=== PATIENT | female | born 1935 | race Caucasian/White ===

== ENCOUNTER 2017-03-25 18:12 | Inpatient (IN) | payer OTHER ==
[~2017-03-25] VITALS: Ht 162.6 cm; Wt 76.2 kg
[~2017-03-25 18:12] MED LIST: ASPI-515 PO; ASPI325T80 PO; ATOR10TA PO; BENA20TA2 PO; BISA10SU65 PR; CITA40TA12 PO; DOCU-131 PO; HYDR1TAB16 PO; LEVO88TA2 PO; MAGN400O7 PO; OXYC20TA42 PO; OXYC5TAB3 PO; PREG25CA PO; TEMA30CA6 PO
[2017-03-25] MEDS ORDERED: ASPIRIN 81 MG TABLET CHEW PO ONE (19:00)
[2017-03-25 19:24] LABS: BASOPHILS # (AUTO) 0.03 x10^3/uL (0-0.1); BASOPHILS % (AUTO) 1 % (0-1); EOSINOPHILS # (AUTO) 0.19 x10^3/uL (0-0.4); EOSINOPHILS % (AUTO) 3 % (1-7); LYMPHOCYTES # (AUTO) 2.19 x10^3/uL (1-3.4); LYMPHOCYTES % (AUTO) 37 % (22-44); MD NO; MEAN CORPUSCULAR HEMOGLOBIN 32.1 pg (27.0-34.8); MEAN CORPUSCULAR VOLUME 97.3 fL (80-100); MONOCYTES # (AUTO) 0.54 x10^3/uL (0.2-0.8); MONOCYTES % (AUTO) 9 % (2-9); NEUTROPHILS # (AUTO) 2.96 x10^3/uL (1.8-6.8); NEUTROPHILS % (AUTO) 50 % (42-75); PLATELET COUNT 182 x10^3/uL (130-400); RED BLOOD COUNT 4.79 x10^6/uL (3.82-5.3)
[2017-03-25 19:35] LABS: ALBUMIN 3.1 g/dL (3.4-5.0); ANION GAP 3 mmol/L (5-15); CALCIUM 8.6 mg/dL (8.5-10.1); CHLORIDE 105 mmol/L (98-107)
[2017-03-25 19:39] LABS: TROPONIN I < 0.015 ng/mL (0.000-0.045)
[2017-03-25] MEDS ORDERED: ASPIRIN 81 MG TABLET CHEW ONE (19:52)
[2017-03-25] MEDS ORDERED: LEVO100T5 PO (20:44)
[2017-03-25] MEDS ORDERED: HYDR-3245 PO (20:44)
[2017-03-25] MEDS ORDERED: NITROGLYCERIN 0.4 MG BOTTLE (25 TABS) SL PRN (21:30)
[2017-03-25] MEDS ORDERED: ONDANSETRON 2MG/ML, 2ML IVPush PRN (21:30)
[2017-03-25] MEDS ORDERED: PREGABALIN 25 MG CAPSULE PO SCH (21:30)
[2017-03-25] MEDS ORDERED: BISACODYL 10 MG SUPP PR PRN (21:30)
[2017-03-25] MEDS ORDERED: CITALOPRAM 20 MG TABLET PO SCH (21:30)
[2017-03-25] MEDS ORDERED: POLYETHYLENE GLYCOL 17 GM PACKET PO PRN (21:30)
[2017-03-25] MEDS ORDERED: ACETAMINOPHEN 325 MG TABLET PO PRN (21:30)
[2017-03-25] MEDS ORDERED: TEMAZEPAM 30 MG CAPSULE PO SCH (21:30)
[2017-03-25 22:16] LABS: FREE T4 (FREE THYROXINE) 1.31 ng/dL (0.76-1.46); THYROID STIMULATING HORMONE 0.109 mIU/L (0.358-3.740)
[2017-03-25 22:30] VITALS: BP 149/84
[2017-03-25] MEDS: HEPARIN 5,000 UNITS/ML, 1ML SQ SCH (23:30)
[2017-03-25] MEDS: SODIUM CHLORIDE FLUSH 10ML SYR IVF SCH (23:30)
[2017-03-26 01:14] VITALS: BP 115/69
[2017-03-26 01:25] LABS: TROPONIN I < 0.015 ng/mL (0.000-0.045)
[2017-03-26] MEDS ORDERED: LEVOTHYROXINE 100 MCG TABLET PO SCH (06:00)
[2017-03-26] MEDS ORDERED: ASPIRIN 81 MG TABLET EC PO SCH (06:00)
[2017-03-26 06:44] LABS: BASOPHILS # (AUTO) 0.02 x10^3/uL (0-0.1); BASOPHILS % (AUTO) 0 % (0-1); EOSINOPHILS # (AUTO) 0.16 x10^3/uL (0-0.4); EOSINOPHILS % (AUTO) 3 % (1-7); LYMPHOCYTES # (AUTO) 1.82 x10^3/uL (1-3.4); LYMPHOCYTES % (AUTO) 32 % (22-44); MD NO; MEAN CORPUSCULAR HEMOGLOBIN 31.8 pg (27.0-34.8); MEAN CORPUSCULAR HGB CONC 33.2 g/dL (32.4-35.8); MEAN CORPUSCULAR VOLUME 95.8 fL (80-100); MEAN PLATELET VOLUME 6.9 fL (7.4-10.4); MONOCYTES # (AUTO) 0.49 x10^3/uL (0.2-0.8); MONOCYTES % (AUTO) 9 % (2-9); NEUTROPHILS # (AUTO) 3.21 x10^3/uL (1.8-6.8); NEUTROPHILS % (AUTO) 56 % (42-75); PLATELET COUNT 147 x10^3/uL (130-400); RED BLOOD COUNT 4.56 x10^6/uL (3.82-5.3); RED CELL DISTRIBUTION WIDTH 13.5 % (9.6-15.2)
[2017-03-26 06:58] LABS: CALCIUM 8.2 mg/dL (8.5-10.1); CHLORIDE 107 mmol/L (98-107)
[2017-03-26 07:06] LABS: CREATININE 1.01 mg/dL (0.55-1.02)
[2017-03-26 07:07] LABS: ALANINE AMINOTRANSFERASE 12 U/L (12-78); ALBUMIN 2.9 g/dL (3.4-5.0); ALKALINE PHOSPHATASE 93 U/L (45-117); BILIRUBIN,TOTAL 0.4 mg/dL (0.2-1.0); HDL CHOLESTEROL (DIRECT) 48 mg/dL (40-60); TOTAL PROTEIN 8.4 g/dL (6.4-8.2); TRIGLYCERIDES 119 mg/dL (50-200); TROPONIN I < 0.015 ng/mL (0.000-0.045); VLDL CHOLESTEROL 24 mg/dL (0-25)
[2017-03-26 07:19] LABS: ANION GAP 5 mmol/L (5-15); CHOL/HDL RATIO 3.1; CHOLESTEROL, TOTAL 151 mg/dL (140-239); HDL CHOL % 32 % (28-40); LDL CHOLESTEROL,CALCULATED 79 mg/dL (54-169); LDL/HDL RATIO 1.6 (0.5-3.0)
[2017-03-26] MEDS: HYDROcodone/APAP 10/325 MG TABLET PO PRN ×2 (08:18→11:29)
[2017-03-26] MEDS: SODIUM CHLORIDE FLUSH 10ML SYR IVF SCH (08:19)
[2017-03-26] MEDS: HEPARIN 5,000 UNITS/ML, 1ML SQ SCH ×2 (08:19→15:30)
[2017-03-26] MEDS ORDERED: REGADENOSON 0.4 MG/5 ML SYRINGE ONE (08:32)
[2017-03-26] MEDS ORDERED: SENNA/DOCUSATE TABLET PO SCH (09:00)
[2017-03-26 12:05] VITALS: BP 106/66
[2017-03-26] MEDS ORDERED: CEPH-368 PO (13:07)
== END 2017-03-26 15:40 | disposition home or self-care (01) | DRG 392 ==
LOC: ED 20:19 → EDIP 20:47 → 5SO 22:41
PROVIDERS: ADMIT Surgery; ATTEND Surgery
DX: K21.9 Gastro-esophageal reflux disease without esophagitis (principal); J96.10 Chronic respiratory failure, unspecified whether with hypoxia or hypercapnia; I25.110 Atherosclerotic heart disease of native coronary artery with unstable angina pectoris; S81.802A Unspecified open wound, left lower leg, initial encounter; Z99.81 Dependence on supplemental oxygen; J44.9 Chronic obstructive pulmonary disease, unspecified; E03.9 Hypothyroidism, unspecified; E78.5 Hyperlipidemia, unspecified; H35.30 Unspecified macular degeneration; I10 Essential (primary) hypertension; I25.2 Old myocardial infarction; M19.90 Unspecified osteoarthritis, unspecified site; X58.XXXA Exposure to other specified factors, initial encounter; Z96.643 Presence of artificial hip joint, bilateral; Z96.653 Presence of artificial knee joint, bilateral; G47.00 Insomnia, unspecified; R68.84 Jaw pain; Z66 Do not resuscitate; Y93.89 Activity, other specified; Y92.89 Other specified places as the place of occurrence of the external cause; Y99.8 Other external cause status; Z79.82 Long term (current) use of aspirin; Z87.891 Personal history of nicotine dependence; Z90.710 Acquired absence of both cervix and uterus; Z98.61 Coronary angioplasty status; Z90.49 Acquired absence of other specified parts of digestive tract; Z79.899 Other long term (current) drug therapy
CPT/HCPCS: 36415; 71010; 78452; 80048; 80053; 80061; 82040; 84439; 84443; 84484; 85025; 93005; 93017; J1644; J2785; A9502; C9898

== ENCOUNTER 2017-10-19 09:19 | Emergency (ER) | payer OTHER ==
[~2017-10-19] VITALS: Ht 161.3 cm; Wt 79.5 kg
[~2017-10-19 09:19] MED LIST changes: +CEPH-368 PO; +HYDR-3245 PO; +LEVO100T5 PO
[2017-10-19] MEDS ORDERED: SODIUM CHLORIDE FLUSH 10ML SYR IVF ONE (10:00)
[2017-10-19 10:11] LABS: BASOPHILS # (AUTO) 0.03 x10^3/uL (0-0.1); BASOPHILS % (AUTO) 0 % (0-1); EOSINOPHILS # (AUTO) 0.15 x10^3/uL (0-0.4); EOSINOPHILS % (AUTO) 2 % (1-7); LYMPHOCYTES # (AUTO) 2.26 x10^3/uL (1-3.4); LYMPHOCYTES % (AUTO) 35 % (22-44); MD NO; MEAN CORPUSCULAR HEMOGLOBIN 31.2 pg (27.0-34.8); MEAN CORPUSCULAR HGB CONC 32.9 g/dL (32.4-35.8); MEAN CORPUSCULAR VOLUME 94.8 fL (80-100); MEAN PLATELET VOLUME 6.9 fL (7.4-10.4); MONOCYTES # (AUTO) 0.29 x10^3/uL (0.2-0.8); MONOCYTES % (AUTO) 5 % (2-9); NEUTROPHILS # (AUTO) 3.76 x10^3/uL (1.8-6.8); NEUTROPHILS % (AUTO) 58 % (42-75); PLATELET COUNT 199 x10^3/uL (130-400); RED BLOOD COUNT 4.01 x10^6/uL (3.82-5.3); RED CELL DISTRIBUTION WIDTH 12.9 % (9.6-15.2)
[2017-10-19 10:22] LABS: ALBUMIN 3.3 g/dL (3.4-5.0); ANION GAP 4 mmol/L (5-15); CALCIUM 8.8 mg/dL (8.5-10.1); CHLORIDE 103 mmol/L (98-107); CREATININE 1.16 mg/dL (0.55-1.02)
[2017-10-19 11:01] LABS: MICROSCOPIC INDICATED
[2017-10-19 11:02] LABS: CULTURE INDICATED? YES
[2017-10-19] MEDS ORDERED: FLUCONAZOLE 100 MG TABLET PO ONE (11:30)
[2017-10-19] MEDS ORDERED: FLUCONAZOLE 100 MG TABLET ONE (11:30)
[2017-10-19 11:32] VITALS: BP 110/51
== END 2017-10-19 11:49 | disposition home or self-care (01) ==
LOC: ED 11:01
DX: N30.90 Cystitis, unspecified without hematuria (principal); B37.89 Other sites of candidiasis; J44.9 Chronic obstructive pulmonary disease, unspecified; I25.2 Old myocardial infarction; I10 Essential (primary) hypertension; E03.9 Hypothyroidism, unspecified; Z88.5 Allergy status to narcotic agent
CPT/HCPCS: 36415; 80048; 81001; 82040; 85025; 87086; 99284

== ENCOUNTER 2018-01-28 17:27 | Emergency (ER) | payer OTHER ==
[~2018-01-28] VITALS: Ht 160 cm; Wt 80.7 kg
[~2018-01-28 17:27] MED LIST changes: -BENA20TA2 PO; +BENA20TA4 PO
[2018-01-28 17:39] VITALS: BP 123/80
[2018-01-28 18:25] LABS: BASOPHILS # (AUTO) 0.04 x10^3/uL (0-0.1); BASOPHILS % (AUTO) 1 % (0-1); EOSINOPHILS # (AUTO) 0.25 x10^3/uL (0-0.4); EOSINOPHILS % (AUTO) 4 % (1-7); LYMPHOCYTES # (AUTO) 2.08 x10^3/uL (1-3.4); LYMPHOCYTES % (AUTO) 30 % (22-44); MD NO; MEAN CORPUSCULAR HEMOGLOBIN 32.3 pg (27.0-34.8); MEAN CORPUSCULAR HGB CONC 33.5 g/dL (32.4-35.8); MEAN CORPUSCULAR VOLUME 96.7 fL (80-100); MEAN PLATELET VOLUME 6.8 fL (7.4-10.4); MONOCYTES # (AUTO) 0.49 x10^3/uL (0.2-0.8); MONOCYTES % (AUTO) 7 % (2-9); NEUTROPHILS # (AUTO) 3.99 x10^3/uL (1.8-6.8); NEUTROPHILS % (AUTO) 58 % (42-75); PLATELET COUNT 187 x10^3/uL (130-400); RED BLOOD COUNT 3.34 x10^6/uL (3.82-5.3); RED CELL DISTRIBUTION WIDTH 13.3 % (9.6-15.2)
[2018-01-28 18:34] LABS: ALBUMIN 3.1 g/dL (3.4-5.0); ANION GAP 5 mmol/L (5-15); CALCIUM 8.6 mg/dL (8.5-10.1); CHLORIDE 100 mmol/L (98-107); CREATININE 0.88 mg/dL (0.55-1.02)
[2018-01-28] MEDS ORDERED: KETOROLAC 30 MG/1 ML ONE (19:03)
[2018-01-28] MEDS ORDERED: KETOROLAC 30 MG/1 ML IM ONE ×2 (19:30)
== END 2018-01-28 19:26 | disposition home or self-care (01) ==
LOC: ED 19:00
DX: M48.56XA Collapsed vertebra, not elsewhere classified, lumbar region, initial encounter for fracture (principal); M54.16 Radiculopathy, lumbar region; J44.9 Chronic obstructive pulmonary disease, unspecified; I25.2 Old myocardial infarction; E03.9 Hypothyroidism, unspecified; I11.9 Hypertensive heart disease without heart failure; I51.9 Heart disease, unspecified; M19.90 Unspecified osteoarthritis, unspecified site; Z87.440 Personal history of urinary (tract) infections
CPT/HCPCS: 36415; 72110; 80048; 82040; 85025; 96372; 99285; J1885

== ENCOUNTER 2018-05-08 09:49 | Observation (INO) | payer MEDICARE, OTHER ==
[~2018-05-08] VITALS: Ht 160 cm; Wt 79.1 kg
[~2018-05-08 09:49] MED LIST changes: -BENA20TA4 PO; +BENA20TA54 PO
[2018-05-08] MEDS ORDERED: ASPIRIN 81 MG TABLET CHEW ONE (10:53)
[2018-05-08] MEDS ORDERED: ASPIRIN 81 MG TABLET CHEW PO ONE (11:00)
--- NOTE | 2018-05-08 11:17 | NUR ---
patient safe in [facility], accompanied by grand daughter, AUGUSTO, VSJo on room air, xray and labs conducted as orderd by KYLE SRINIVASAN on 5 lead radiation monitor. chewable aspirin given per JUN, patient otherwise instructed to be NPO, call light in reach.
[2018-05-08 11:26] LABS: BASOPHILS # (AUTO) 0.05 x10^3/uL (0-0.1); BASOPHILS % (AUTO) 1 % (0-1); EOSINOPHILS # (AUTO) 0.05 x10^3/uL (0-0.4); EOSINOPHILS % (AUTO) 1 % (1-7); LYMPHOCYTES # (AUTO) 2.98 x10^3/uL (1-3.4); LYMPHOCYTES % (AUTO) 30 % (22-44); MD NO; MEAN CORPUSCULAR HEMOGLOBIN 32.3 pg (27.0-34.8); MEAN CORPUSCULAR HGB CONC 33.1 g/dL (32.4-35.8); MEAN CORPUSCULAR VOLUME 97.8 fL (80-100); MEAN PLATELET VOLUME 7.1 fL (7.4-10.4); MONOCYTES # (AUTO) 0.78 x10^3/uL (0.2-0.8); MONOCYTES % (AUTO) 8 % (2-9); NEUTROPHILS # (AUTO) 6.19 x10^3/uL (1.8-6.8); NEUTROPHILS % (AUTO) 62 % (42-75); PLATELET COUNT 242 x10^3/uL (130-400); RED BLOOD COUNT 4.12 x10^6/uL (3.82-5.3); RED CELL DISTRIBUTION WIDTH 14.1 % (9.6-15.2)
[2018-05-08 11:36] LABS: ALANINE AMINOTRANSFERASE 16 U/L (12-78); ALBUMIN 3.4 g/dL (3.4-5.0); ANION GAP 5 mmol/L (5-15); CALCIUM 9.2 mg/dL (8.5-10.1); CHLORIDE 105 mmol/L (98-107); CREATININE 1.01 mg/dL (0.55-1.02)
[2018-05-08 11:40] LABS: ALKALINE PHOSPHATASE 131 U/L (45-117); BILIRUBIN,TOTAL 0.3 mg/dL (0.2-1.0); TOTAL PROTEIN 8.5 g/dL (6.4-8.2); TROPONIN I < 0.015 ng/mL (0.000-0.045)
--- NOTE | 2018-05-08 11:50 | NUR ---
TASK RN: PT CHART REVIEWED AND PLACED FOR RECHECK.
--- NOTE | 2018-05-08 12:37 | NUR ---
TASK RN: PT RESTING ON GURNEY. NADN. RUANOS. PIV INITIATED. PT AND FAMILY AWARE OF POC FOR ADMIT.
--- NOTE | 2018-05-08 12:44 | NUR ---
Report to TAJ Morales, all questions answered, patient updated of transfer plan, no acute changes noted.
[2018-05-08] MEDS ORDERED: NITROGLYCERIN 0.4 MG/SPRAY SL PRN (13:30)
[2018-05-08] MEDS ORDERED: ASPIRIN 325 MG TABLET EC PO ONE (13:30)
[2018-05-08 13:59] LABS: TROPONIN I < 0.015 ng/mL (0.000-0.045)
[2018-05-08] MEDS: HEPARIN 5,000 UNITS/ML, 1ML SQ SCH ×2 (15:09→22:02)
[2018-05-08 17:25] LABS: CHOLESTEROL, TOTAL 186 mg/dL (140-239); TRIGLYCERIDES 176 mg/dL (50-200); VLDL CHOLESTEROL 35 mg/dL (0-25)
[2018-05-08 17:28] LABS: CHOL/HDL RATIO 2.9; HDL CHOL % 34 % (28-40); HDL CHOLESTEROL (DIRECT) 64 mg/dL (40-60); LDL CHOLESTEROL,CALCULATED 87 mg/dL (54-169); LDL/HDL RATIO 1.4 (0.5-3.0); TROPONIN I < 0.015 ng/mL (0.000-0.045)
[2018-05-08 19:30] LABS: TROPONIN I < 0.015 ng/mL (0.000-0.045)
[2018-05-08 20:29] VITALS: BP 159/78
[2018-05-08] MEDS: ATORVASTATIN 40 MG TABLET PO SCH (21:28)
[2018-05-08] MEDS: SODIUM CHLORIDE FLUSH 10ML SYR IVF SCH (21:34)
[2018-05-08] MEDS: TEMAZEPAM 30 MG CAPSULE PO PRN (22:02)
[2018-05-09 02:00] VITALS: BP_SYST 153; BP_SYST 159; BP_SYST 186; BP_DIAS 81; BP_DIAS 87
[2018-05-09] MEDS: HEPARIN 5,000 UNITS/ML, 1ML SQ SCH ×3 (05:30→21:27)
[2018-05-09 05:36] LABS: CALCIUM 8.8 mg/dL (8.5-10.1); CHLORIDE 105 mmol/L (98-107)
[2018-05-09] MEDS: ASPIRIN 325 MG TABLET EC PO SCH (05:38)
[2018-05-09 05:43] LABS: ALANINE AMINOTRANSFERASE 14 U/L (12-78); ALBUMIN 3.1 g/dL (3.4-5.0); ALKALINE PHOSPHATASE 123 U/L (45-117); ANION GAP 3 mmol/L (5-15); BILIRUBIN,TOTAL 0.6 mg/dL (0.2-1.0); TOTAL PROTEIN 7.7 g/dL (6.4-8.2)
[2018-05-09] MEDS ORDERED: ASPIRIN 325 MG TABLET PO SCH (06:00)
[2018-05-09 08:15] VITALS: BP 131/78
[2018-05-09] MEDS: ISOSORBIDE MONONITRATE ER 30 MG TABLET PO SCH (08:25)
[2018-05-09] MEDS: HYDROcodone/APAP 10/325 MG TABLET PO PRN (08:25)
[2018-05-09] MEDS: SODIUM CHLORIDE FLUSH 10ML SYR IVF SCH ×2 (09:00→21:27)
[2018-05-09] MEDS: [UNRECOGNIZED DRUG - OTHER] MC SCH ×2 (10:30→14:32)
[2018-05-09] MEDS: CITALOPRAM MC SCH ×2 (10:30→18:30)
[2018-05-09] MEDS ORDERED: REGADENOSON 0.4 MG/5 ML SYRINGE ONE (12:38)
[2018-05-09] MEDS: LEVOTHYROXINE 100 MCG TABLET PO SCH (14:30)
[2018-05-09 14:50] VITALS: BP 130/77
[2018-05-09 15:42] VITALS: BP 130/77
[2018-05-09 18:02] VITALS: BP_SYST 129; BP_SYST 133; BP_DIAS 77; BP_DIAS 79
[2018-05-09 18:03] VITALS: BP 147/78
[2018-05-09] MEDS ORDERED: CITALOPRAM MC SCH (18:38)
[2018-05-09] MEDS ORDERED: CITALOPRAM 20 MG TABLET PO SCH (21:00)
[2018-05-09] MEDS: ATORVASTATIN 40 MG TABLET PO SCH (21:27)
[2018-05-09] MEDS: TEMAZEPAM 30 MG CAPSULE PO PRN (21:27)
[2018-05-10 00:45] VITALS: BP 143/96
[2018-05-10] MEDS: ASPIRIN 325 MG TABLET EC PO SCH (06:05)
[2018-05-10] MEDS: LEVOTHYROXINE 100 MCG TABLET PO SCH (06:05)
[2018-05-10] MEDS: HEPARIN 5,000 UNITS/ML, 1ML SQ SCH (06:05)
[2018-05-10 06:32] VITALS: BP 175/87
[2018-05-10] MEDS ORDERED: ATOR40TA78 PO (07:41)
[2018-05-10] MEDS: ISOSORBIDE MONONITRATE ER 30 MG TABLET PO SCH (08:02)
[2018-05-10] MEDS ORDERED: LISI-167 PO ×2 (08:48→08:50)
[2018-05-10] MEDS: HYDROcodone/APAP 10/325 MG TABLET PO PRN (08:52)
[2018-05-10] MEDS: SODIUM CHLORIDE FLUSH 10ML SYR IVF SCH (08:52)
[2018-05-10] MEDS ORDERED: LISINOPRIL 10 MG TABLET PO SCH (09:00)
[2018-05-10 11:14] VITALS: BP 100/65
[2018-05-10 12:26] VITALS: BP 109/64
== END 2018-05-10 13:10 | disposition home or self-care (01) ==
LOC: ED 10:35 → INTOOBSV 12:12 → OBSVTOIN 12:12 → EDIP 12:12 → 5SO 14:16
PROVIDERS: ADMIT Hospitalist; ATTEND Hospitalist
DX: R07.2 Precordial pain (principal); F32.9 Major depressive disorder, single episode, unspecified; I25.10 Atherosclerotic heart disease of native coronary artery without angina pectoris; J44.9 Chronic obstructive pulmonary disease, unspecified; E03.9 Hypothyroidism, unspecified; G47.00 Insomnia, unspecified; J18.9 Pneumonia, unspecified organism; E66.01 Morbid (severe) obesity due to excess calories; E78.5 Hyperlipidemia, unspecified; H35.30 Unspecified macular degeneration; I10 Essential (primary) hypertension; I25.2 Old myocardial infarction; M19.90 Unspecified osteoarthritis, unspecified site; Z90.49 Acquired absence of other specified parts of digestive tract; Z68.30 Body mass index [BMI] 30.0-30.9, adult; Z79.899 Other long term (current) drug therapy; Z87.891 Personal history of nicotine dependence; Z90.710 Acquired absence of both cervix and uterus; Z96.643 Presence of artificial hip joint, bilateral; Z98.61 Coronary angioplasty status
CPT/HCPCS: 36415; 71045; 78452; 80053; 80061; 84443; 84484; 85025; 93005; 93017; 93306; 96372; 99284; A9502; C9898; G0378; J1644; J2785; 99285